=== PATIENT | female | born 1990 | race Caucasian/White ===

== ENCOUNTER 2020-03-18 05:41 | Emergency (ER) | payer MEDICAID ==
--- NOTE | 2020-03-18 05:47 | ED Physician Documentation ---
History of Present Illness - Stated complaint Stated Complaint: SOA - History obtained from History obtained from: Patient - Additonal information Additional information: Patient comes emergency department complaining of shortness of breath after having an asthma exacerbation running out of her inhaler. Patient states that she has had symptoms for little over 24 hours. She does smoke cigarettes, though not more than usual. She denies having a cough or fever recently or allergies. She is not sure what triggered this current episode. Patient states she is just felt like she cannot get much air in and that her lungs are tight. No other complaints at this time. Review of Systems Ten Systems: 10 systems reviewed and negative Constitutional: reports: Reviewed and negative Eyes: reports: Reviewed and negative Ears: reports: Reviewed and negative Nose: reports: Reviewed and negative Throat: reports: Reviewed and negative Cardiac: reports: Reviewed and negative Respiratory: reports: Dyspnea, Wheezing GI: reports: Reviewed and negative : reports: Reviewed and negative Skin: reports: Reviewed and negative Musculoskeletal: reports: Reviewed and negative Neurologic: reports: Reviewed and negative Psychiatric: reports: Reviewed and negative Endocrine: reports: Reviewed and negative Immunocompromised: reports: Reviewed and negative PD PAST MEDICAL HISTORY - Present Medications Home Medications: Ambulatory Orders Medication Instructions Recorded Confirmed Albuterol Sulf [Ventolin Hfa 1 - 2 puffs INH Q4HR PRN #1 inhaler 03/18/20 Inhaler] Albuterol Sulf [Ventolin Hfa 1 puffs INH PRN PRN 03/18/20 03/18/20 Inhaler] predniSONE [Prednisone] 60 mg PO DAILY #15 tablet 03/18/20 - Allergies Allergies/Adverse Reactions: Allergies Allergy/AdvReac Type Severity Reaction Status Date / Time No Known Drug Allergies Allergy Verified 03/18/20 05:57 PD ED PE NORMAL - Vitals Vital signs reviewed: Yes - General General: Alert and oriented X 3, No acute distress - HEENT HEENT: Atraumatic, PERRL, EOMI, Moist mucous membranes - Neck Neck: Supple, no meningeal sign - Cardiac Cardiac: RRR, No murmur, Strong equal pulses - Respiratory Respiratory: Other (Patient has tight, mildly labored respirations, with wheezing and coarse rhonchi throughout her lung lomas. Lung sounds are diminished in the lower lung lomas.) - Abdomen Abdomen: Non distended - Derm Derm: Normal color, Warm and dry, No rash - Extremities Extremities: No deformity - Neuro Neuro: Alert and oriented X 3, Other (Grossly normal) - Psych Psych: Normal mood, Normal affect Results - Vitals Vitals: Vital Signs - 24 hr 03/18/20 03/18/20 03/18/20 05:48 06:30 06:38 Temperature 36.5 C Heart Rate 93 85 89 Respiratory 26 H 24 Rate Blood Pressure 123/89 H 133/89 H O2 Saturation 97 100 Oxygen O2 Source Room air PD MEDICAL DECISION MAKING - ED course Complexity details: considered differential, d/w patient ED course: Patient was treated with a DuoNeb and oral prednisone initially. She was found to be breathing easier after the above treatments and stated she did not feel as though she needed another nebulizer treatment. The patient was given a prescription for an albuterol inhaler as well as prednisone. We discussed the usual indications for return. Departure - Departure Disposition: 01 Home, Self Care Clinical Impression: Asthma exacerbation Qualifiers: Asthma severity: mild Asthma persistence: intermittent Qualified Code(s): J45.21 - Mild intermittent asthma with (acute) exacerbation Condition: Stable Instructions: Asthma Dc Prescriptions: Albuterol Sulf [Ventolin Hfa Inhaler] 1 - 2 puffs INH Q4HR PRN #1 inhaler PRN Reason: Shortness Of Air/Wheezing predniSONE [Prednisone] 60 mg PO DAILY #15 tablet
[2020-03-18] MEDS ORDERED: predniSONE 20 MG TABLET PO STA (05:53)
[2020-03-18] MEDS ORDERED: IPRATROPIUM/ALBUTEROL 3 ML NEB INH STA (05:53)
[2020-03-18 07:05] VITALS: BP 131/85
== END 2020-03-18 07:05 | disposition home or self-care (01) ==
LOC: ED 05:41
DX: J45.21 Mild intermittent asthma with (acute) exacerbation (principal); F17.200 Nicotine dependence, unspecified, uncomplicated
CPT/HCPCS: 94640; 99282; 99283; J7512